=== PATIENT | male | born 1990 | race Caucasian/White ===

== ENCOUNTER 2016-11-13 11:08 | Emergency (ER) | payer SELFPAY ==
[~2016-11-13] VITALS: Ht 172.7 cm; Wt 105.4 kg
[2016-11-13 11:18] VITALS: BP 128/87; PULSE 84; RESP 16; TEMP 98; O2SAT 98
[2016-11-13] MEDS ORDERED: ERYTOIN10 RIGHT EYE (11:51)
--- NOTE | 2016-11-13 11:57 | PD ---
HPI Chief Complaint: Eye Problems/Injury Time Seen by Provider: 11:52 Travel History International Travel<30 days: No Contact w/Intl Traveler<30days: No Traveled to known affect area: No History of Present Illness HPI Patient's 26-year-old male presenting with right painful upper eyelid. Present for 2 days. He states that he's had some clear tearing as well and a mild right -sided headache that was relieved with ibuprofen. He denies any vision change, foreign body sensation or photophobia. He states he has chronic tearing and itching of his eyes which has worsened over the last several days, does not use anything for palliation. He denies any ENT/URI symptoms, fever and loss of vision. He does not wear contact lenses. [facility] Past Medical History Medical History: Denies Significant Hx Diminished Hearing: No Tetanus Vaccination: Unknown Past Surgical History Oral Surgery: Yes (FRONT TOOTH) Social History Alcohol Use: Yes (OCC.) Tobacco Use: Yes Substance Use: No Allergies-Medications (Allergen,Severity, Reaction): Coded Allergies: Penicillin (Verified Allergy, Intermediate, SWELLING AND RASH, 11/13/16) Reported Meds & Prescriptions Reported Meds & Active Scripts Active Erythromycin Opth Oint 5 Mg/Gm Oint 1 Applic RIGHT EYE BID 7 Days Review of Systems General / Constitutional: No: Fever, Chills Eyes: Positive: Drainage (clear), Pain (right upper eyelid), Tearing, No: Diploplia, Blurred Vision, Photophobia, Redness, Foreign Body Sensation, Blind Spots, Visual changes HENT: Positive: Headaches (mild, right-sided), No: Vertigo, Lightheadedness, Sore Throat, Rhinitis, Congestion Respiratory: No: Cough Hematologic/Lymphatic: No: Lymph Node Enlargement Physical Exam Narrative GENERAL: Well-developed and well-nourished adult male in no acute distress. SKIN: Warm and dry. Good turgor without tenting. HEAD: Normocephalic and atraumatic. EYES: PERRL bilaterally, 5mm. EOMI bilaterally. Very mild right conjunctival injection peripherally the bilateral eyes, slightly worse on the right without limbal injection. No icterus present. No proptosis. Right upper eyelid has pointing on the lateral aspect and mild edema with tenderness consistent with hordeolum. Visual martinez normal to confrontation. No pain with palpation of the right religious. Lid eversion reveals no foreign object.right eye fluorescein stain reveals no uptake on the right. ENT: Nasal mucosa pink and moist without discharge, septum intact and midline. Buccal mucosa pink and moist. Oropharynx free of erythema, tonsillar hypertrophy , masses, swelling, asymmetry and exudates. Uvula midline and airway patent. NECK: Supple, no meningeal signs. Trachea midline, no JVD. No cervical or facial lymphadenopathy. CARDIOVASCULAR: Regular rate and rhythm without murmurs, rubs, clicks or gallops. RESPIRATORY: Clear to auscultation bilaterally with symmetrical rise and fall, no distress or use of accessory muscles. NEUROLOGIC: CN II-XII grossly intact. Awake and alert. Motor grossly within normal limits. Normal speech. PSYCHIATRIC: Appropriate mood and affect; insight and judgment normal. Data Data Last Documented VS Vital Signs Date Time Temp Pulse Resp B/P Pulse Ox O2 Delivery O2 Flow Rate FiO2 11/13/16 11:18 98.0 84 16 128/87 98 Orders Proparacaine 0.5% Opth Soln (Alcaine 0.5 (11/13/16 12:00) MDM Medical Decision Making Medical Screen Exam Complete: Yes Emergency Medical Condition: Yes Differential Diagnosis stye versus chalazion versus blepharitis versus preseptal/post septal cellulitis unlikely Narrative Course Patient is a 26-year-old male presenting with history and physical suggestive of hordeolum on the right upper eyelid. This is blepharitis. There is no evidence of orbital cellulitis or giant cell arteritis. Visual acuity is excellent. Patient given erythromycin ointment recommend warm moist compresses and limit massage to help facilitate resolution. Follow-up with PCP or her gem stone cutter on Tuesday.See discharge paperwork for further instructions. The plan was discussed with the patient who acknowledged their understanding and agreement. Reinforced the follow-up with primary care is critically important. Patient instructed on emergent conditions that should prompt return to ED. Diagnosis Primary Impression: Stye external Qualified Code: H00.011 - Hordeolum externum of right upper eyelid Additional Impression: Allergic conjunctivitis Qualified Code: H10.13 - Allergic conjunctivitis, bilateral Patient Instructions: General Instructions, Rodriguez (ED) Departure Forms: Tests/Procedures, Work Release Enter return to work date: Nov 15, 2016 Additional Instructions: Take medications as prescribed Forgot warm compresses and limit massage will help resolve the stye Use of OTC Naphcon-A or Alaway may help with itching and watering Follow-up with PCP or gem stone cutter on Tuesday Return to the ED for any acute worsening of symptoms including worsening pain, worsening swelling or vision disturbance Med/Other Pt SpecificInfo: Prescription(s) given Scripts Erythromycin Opth Oint 5 Mg/Gm Oint1 Applic RIGHT EYE BID 7 Days Ref 0 Prov:Yu Cary MD 11/13/16 Disposition: 01 DISCHARGE HOME Condition: Stable William Garnica III Nov 13, 2016 11:57
[2016-11-13] MEDS ORDERED: PROPARACAINE HCL 0.5% OPHT SOLN 15 ML BTL RIGHT EYE ONE (12:00)
[2016-11-13] MEDS ORDERED: IBUPROFEN 800 MG TAB PO ONE (12:30)
== END 2016-11-13 12:34 | disposition home or self-care (01) ==
LOC: PHEFT 11:08
DX: H00.011 Hordeolum externum right upper eyelid (principal); H10.13 Acute atopic conjunctivitis, bilateral; R51 Headache
CPT/HCPCS: 99283

== ENCOUNTER 2017-01-09 16:18 | Emergency (ER) | payer SELFPAY ==
[~2017-01-09] VITALS: Ht 172.7 cm; Wt 102.5 kg
[~2017-01-09 16:18] MED LIST: ERYTOIN10 RIGHT EYE
[2017-01-09 16:22] VITALS: BP 129/91; PULSE 110; RESP 16; TEMP 98.5; O2SAT 96
--- NOTE | 2017-01-09 16:25 | PD ---
HPI . cough for 1-2 weeks Chief Complaint: ENT Complaint Time Seen by Provider: 16:25 Travel History International Travel<30 days: No Contact w/Intl Traveler<30days: No Traveled to known affect area: No History of Present Illness HPI 26-year-old male with no significant past medical history here with complaints of cough for about 1-2 weeks. Patient admits to a dry cough that has been persistent. He says occasionally has some mucus that comes up. He also complains of some ear pain when coughing. He is here because the coughing has been worsening and is keeping him up at night. He denies smoking. He denies any fever chills, chest pain, shortness of breath, nausea, vomiting, diaphoresis or other symptoms. PFSH Past Medical History Diminished Hearing: No Past Surgical History Oral Surgery: Yes (FRONT TOOTH) Social History Alcohol Use: Yes (OCC.) Tobacco Use: Yes Substance Use: No Allergies-Medications (Allergen,Severity, Reaction): Coded Allergies: Penicillin (Verified Allergy, Intermediate, SWELLING AND RASH, 01/09/17) Reported Meds & Prescriptions Reported Meds & Active Scripts Active Prednisone 50 Mg Tab 50 Mg PO DAILY Review of Systems General / Constitutional: No: Fever Eyes: No: Visual changes HENT: Positive: Earache, No: Headaches, Ear Discharge Cardiovascular: No: Chest Pain or Discomfort Respiratory: Positive: Cough, No: Shortness of Breath Gastrointestinal: No: Abdominal Pain Genitourinary: No: Dysuria Musculoskeletal: No: Pain Skin: No Rash Neurologic: No: Weakness Psychiatric: No: Depression Endocrine: No: Polydipsia Hematologic/Lymphatic: No: Easy Bruising Physical Exam Narrative GENERAL: AAO x 3, no acute distress, Well-nourished, well-developed patient. SKIN: Warm and dry. No visible rashes or bruising. HEAD: Normocephalic and atraumatic. EYES: No scleral icterus. No injection or drainage. EOM intact, PERRLA ENT: No nasal drainage noted. Mucous membranes pink. Airway patent. No postnasal drip. TM normal bilaterally. NECK: Supple, trachea midline. No JVD. CARDIOVASCULAR: Regular rate and rhythm without murmurs, gallops, or rubs. No tachycardia on exam. HR 90 RESPIRATORY: Breath sounds equal bilaterally. No accessory muscle use. No rhonchi or rales. Dry cough on examination. GASTROINTESTINAL: Abdomen soft, non-tender, nondistended. EXTREMITIES: No cyanosis or edema. BACK: Nontender without obvious deformity. No CVA tenderness. PSYCH: AAO x 3, normal affect. Data Data Last Documented VS Vital Signs Date Time Temp Pulse Resp B/P Pulse Ox O2 Delivery O2 Flow Rate FiO2 01/09/17 16:25 16 01/09/17 16:22 98.5 110 129/91 96 MDM Medical Decision Making Medical Screen Exam Complete: Yes Emergency Medical Condition: Yes Medical Record Reviewed: Yes Differential Diagnosis Acute bronchitis, acute sinusitis, less likely pneumonia Narrative Course 26-year-old male with no significant past medical history here with complaints of cough for about 1-2 weeks. Patient admits to a dry cough that has been persistent. He says occasionally has some mucus that comes up. He also complains of some ear pain when coughing. He is here because the coughing has been worsening and is keeping him up at night. He denies smoking. He denies any fever chills, chest pain, shortness of breath, nausea, vomiting, diaphoresis or other symptoms. Patient seen and examined. There is no acute finding other than a dry cough on examination. He appears to have a mild bronchitis. I advised him there is no need for antibiotics and I will treat with course of prednisone. Patient was in agreement. Patient verbalized understanding of instructions, questions were answered, and thanked me for their care. I advised them if their condition worsens, please return to the nearest emergency room for further care. Diagnosis Primary Impression: Acute bronchitis Qualified Code: J20.9 - Acute bronchitis, unspecified organism Patient Instructions: Acute Bronchitis (ED), General Instructions Additional Instructions: Please return to emergency department if your symptoms return or worsen. Follow up with your primary care provider. Take medications as prescribed. Med/Other Pt SpecificInfo: Prescription(s) given Scripts Prednisone 50 Mg Tab50 Mg PO DAILY #5 TAB Prov:Ladarius Crawford MD 01/09/17 Disposition: 01 DISCHARGE HOME Condition: Stable Maddie Nix Jan 09, 2017 16:25
[2017-01-09] MEDS ORDERED: PRED50 PO (16:35)
== END 2017-01-09 16:40 | disposition home or self-care (01) ==
LOC: PHEFT 16:18
DX: J20.9 Acute bronchitis, unspecified (principal); H92.09 Otalgia, unspecified ear; Z72.0 Tobacco use
CPT/HCPCS: 99283

== ENCOUNTER 2017-01-11 00:01 | Emergency (ER) | payer SELFPAY ==
[~2017-01-11] VITALS: Ht 172.7 cm; Wt 103.1 kg
[~2017-01-11 00:01] MED LIST changes: -ERYTOIN10 RIGHT EYE; +PRED50 PO
[2017-01-11 00:10] VITALS: BP 131/81; PULSE 93; RESP 22; TEMP 97.9; O2SAT 97
--- NOTE | 2017-01-11 00:25 | PD ---
HPI Chief Complaint: Cold / Flu Symptoms Time Seen by Provider: 00:15 Travel History International Travel<30 days: No Contact w/Intl Traveler<30days: No Traveled to known affect area: No History of Present Illness HPI The patient is a 26-year-old male who presents emergency department for cough. The patient was evaluated in the emergency department 2 days ago and diagnosed with bronchitis. Patient was placed on prednisone. However, he continues to complain of a dry mostly nonproductive cough, worse at night. He also complains of chest congestion, chest tightness, and occasional difficulty breathing. Upon arrival he denies any active chest pain or shortness of breath. He does have a history of tobacco use, socially, denies any history of bronchitis or pneumonia. The patient denies any history of asthma, allergies, or previous respiratory disorders. Symptoms are moderate, there are no current alleviating or exacerbating factors. He has been using [id number] cough and cold medicine with minimal relief. PFSH Past Medical History Medical History: Denies Significant Hx Diminished Hearing: No Tetanus Vaccination: < 5 Years Past Surgical History Oral Surgery: Yes (Front tooth) Social History Alcohol Use: Yes (OCC) Tobacco Use: Yes (HAS NOT SMOKED IN 4 WKS) Substance Use: No Allergies-Medications (Allergen,Severity, Reaction): Coded Allergies: Penicillin (Verified Allergy, Intermediate, SWELLING AND RASH, 01/11/17) Reported Meds & Prescriptions Reported Meds & Active Scripts Active Prednisone 50 Mg Tab 50 Mg PO DAILY Review of Systems General / Constitutional: No: Fever Cardiovascular: No: Chest Pain or Discomfort Respiratory: Positive: Cough Gastrointestinal: No: Nausea, Vomiting Musculoskeletal: No: Myalgias, Arthralgias Skin: No Rash Physical Exam Narrative GENERAL: Awake, alert, 26-year-old male who appears his stated age and is in no acute respiratory distress. SKIN: Warm and dry. HEAD: Atraumatic. Normocephalic. EYES: No injection or drainage. ENT: No nasal bleeding or discharge. Mucous membranes pink and moist. NECK: Trachea midline. No JVD. CARDIOVASCULAR: Regular rate and rhythm. No murmur appreciated. Heart rate in the 90s. RESPIRATORY: No accessory muscle use. Occasional wheezes noted. MUSCULOSKELETAL: No obvious deformities. No clubbing. No cyanosis. No edema. NEUROLOGICAL: Nonfocal. PSYCHIATRIC: Appropriate mood and affect; insight and judgment normal. Data Data Last Documented VS Vital Signs Date Time Temp Pulse Resp B/P Pulse Ox O2 Delivery O2 Flow Rate FiO2 01/11/17 00:20 93 18 97 01/11/17 00:10 97.9 131/81 Room Air Orders Albuterol-Ipratropium Neb (Duoneb Neb) (01/11/17 00:30) Lidocaine Pf 4% Neb (Lidocaine Pf 4% Neb (01/11/17 00:30) MDM Medical Decision Making Medical Screen Exam Complete: Yes Emergency Medical Condition: Yes Medical Record Reviewed: Yes Differential Diagnosis Differential diagnosis includes mycoplasma pneumonia, bronchitis, pneumonia, reactive airway disease, pneumothorax, foreign body ingestion. Narrative Course Patient's history and physical are consistent with bronchitis. The patient was placed on prednisone 2 days ago. The patient was administered DuoNeb with respiratory lidocaine. The patient will be placed on Zithromax to cover for mycoplasma pneumonia and albuterol inhaler 2 puffs every 4 hours while awake. He is advised to follow-up with a primary physician and return if symptoms worsen or progress. Diagnosis Primary Impression: Acute bronchitis Qualified Code: J20.9 - Acute bronchitis, unspecified organism Patient Instructions: General Instructions Additional Instructions: Continue prednisone as previously directed. Albuterol inhaler as directed. Zithromax as directed. Stop smoking. Plenty of fluids this dehydrated. Follow -up with your primary physician. Med/Other Pt SpecificInfo: Prescription(s) given Scripts Albuterol 18 GM Inh (Ventolin Hfa 18 GM Inh)90 Mcg/Act Aer2 Puff INH Q4H PRN ( SHORTNESS OF BREATH) #1 INHALER Ref 0 Prov:Chinedu Mae MD 01/11/17 Azithromycin (Zithromax Z-Ghassan)250 Mg [id number] Mg PO DIRECTED #1 DSPK Ref 0 500 MG (2 tabs) day 1, then 1 tab days 2-5. Prov:Chinedu Mae MD 01/11/17 Disposition: 01 DISCHARGE HOME Chinedu Mae MD Jan 11, 2017 00:25
[2017-01-11] MEDS ORDERED: ZITHTAB PO (00:28)
[2017-01-11] MEDS ORDERED: VENTAER INH (00:28)
[2017-01-11] MEDS ORDERED: RESP: LIDOCAINE HCL 4% PF 5 ML NEB NEB ONE (00:30)
[2017-01-11] MEDS ORDERED: RESP: ALBUTEROL 2.5 MG/IPRATROPIUM 0.5 MG NEB (SCH) NEB ONE (00:30)
== END 2017-01-11 00:43 | disposition home or self-care (01) ==
LOC: PHED 00:01
DX: J20.9 Acute bronchitis, unspecified (principal)
CPT/HCPCS: 94664; 99283

== ENCOUNTER 2017-03-02 21:47 | Emergency (ER) | payer SELFPAY ==
[~2017-03-02] VITALS: Ht 172.7 cm; Wt 102.0 kg
[~2017-03-02 21:47] MED LIST changes: +VENTAER INH; +ZITHTAB PO
[2017-03-02 21:49] VITALS: BP 140/90; PULSE 102; RESP 20; TEMP 97.9; O2SAT 98
[2017-03-02] MEDS ORDERED: PROPARACAINE HCL 0.5% OPHT SOLN 15 ML BTL EACH EYE ONE (22:15)
[2017-03-02] MEDS ORDERED: POLY10O RIGHT EYE (22:32)
--- NOTE | 2017-03-02 22:35 | PD ---
HPI Chief Complaint: Foreign Body Time Seen by Provider: 22:27 Travel History International Travel<30 days: No Contact w/Intl Traveler<30days: No Traveled to known affect area: No History of Present Illness HPI 26-year-old male presents for evaluation of right eye foreign body sensation. He reports that he was replacing a window unit today when a piece of dirt or other debris fell into his right eye. He washed the eye out at home with some water but the foreign body sensation and irritation persist which prompted evaluation. Symptoms are worse when his eye is open. Last Tetanus vaccination 2 years ago. He does not wear contacts. No other complaints. PFSH Past Medical History Diminished Hearing: No Past Surgical History Oral Surgery: Yes (Front tooth) Social History Alcohol Use: Yes (OCC) Tobacco Use: Yes (HAS NOT SMOKED IN 4 WKS) Substance Use: No Allergies-Medications (Allergen,Severity, Reaction): Coded Allergies: Penicillin (Verified Allergy, Intermediate, SWELLING AND RASH, 03/02/17) Reported Meds & Prescriptions Reported Meds & Active Scripts Active Polytrim Opth Drops (Polymyxin/Trimethoprim Sulfate) 10,000-0.1 Unit/Ml-% Soln 1 Drop RIGHT EYE Q6HR 7 Days Ventolin Hfa 18 GM Inh (Albuterol Sulfate) 90 Mcg/Act Aer 2 Puff INH Q4H PRN Zithromax Z-Ghassan (Azithromycin) 250 Mg Dspk 250 Mg PO DIRECTED 500 MG (2 tabs) day 1, then 1 tab days 2-5. Prednisone 50 Mg Tab 50 Mg PO DAILY Review of Systems General / Constitutional: No: Fever Eyes: Positive: Redness, Foreign Body Sensation, Tearing, No: Blurred Vision Physical Exam Narrative GENERAL: Well-developed well-nourished male in no acute distress SKIN: Warm and dry. HEAD: Atraumatic. Normocephalic. EYES: Pupils equal and round reactive to light extraocular muscles are intact there is mild conjunctival injection in the right eye. The upper eyelid was everted and there is no evidence of foreign body. Fitzpatrick lamp reveals some area of increased uptake on the lower sclera at the 6 o'clock position. Negative Severino's. ENT: No nasal bleeding or discharge. Mucous membranes pink and moist. Data Data Last Documented VS Vital Signs Date Time Temp Pulse Resp B/P Pulse Ox O2 Delivery O2 Flow Rate FiO2 03/02/17 21:49 97.9 102 20 140/90 98 Room Air Orders Proparacaine 0.5% Opth Soln (Alcaine 0.5 (03/02/17 22:15) MDM Medical Decision Making Medical Screen Exam Complete: Yes Emergency Medical Condition: Yes Medical Record Reviewed: Yes Differential Diagnosis Corneal abrasion, scleral abrasion, retained foreign body, iritis, conjunctivitis Narrative Course 26-year-old male with foreign body sensation and irritation in the right eye after some debris fell into his right eye earlier today. He washed it out at home and examination reveals no evidence of retained foreign body. He does have a scleral abrasion at the 6 o'clock position. He will be discharged with Polytrim ophthalmic solution. Diagnosis Primary Impression: Abrasion of sclera of right eye Qualified Code: S05.8X1A - Abrasion of sclera of right eye, initial encounter Additional Instructions: Medication as prescribed. As discussed, symptoms should resolve in approximately 48 hours. If symptoms are worsening at that time follow-up for recheck. Med/Other Pt SpecificInfo: Prescription(s) given Scripts Polymyxin B-Trimethoprim Opth Drops (Polytrim Opth Drops)10,000-0.1 Unit/Ml-% Soln1 Drop RIGHT EYE Q6HR 7 Days Ref 0 Prov:Jb Larose MD 03/02/17 Disposition: 01 DISCHARGE HOME Condition: Stable Micheal Bellamy Mar 02, 2017 22:35
== END 2017-03-02 22:53 | disposition home or self-care (01) ==
LOC: NEPK 21:47
DX: S05.01XA Injury of conjunctiva and corneal abrasion without foreign body, right eye, initial encounter (principal); X58.XXXA Exposure to other specified factors, initial encounter
CPT/HCPCS: 99283

== ENCOUNTER 2018-04-17 21:10 | Emergency (ER) | payer OTHER ==
[~2018-04-17] VITALS: Ht 172.7 cm; Wt 101.1 kg
[~2018-04-17 21:10] MED LIST changes: +POLY10O RIGHT EYE
[2018-04-17 21:13] VITALS: BP 152/78; PULSE 93; RESP 18; TEMP 98.4; O2SAT 96
--- NOTE | 2018-04-17 21:42 | PD ---
HPI Chief Complaint: Musculoskeletal Complaint Time Seen by Provider: 21:32 Travel History International Travel<30 days: No Contact w/Intl Traveler<30days: No Traveled to known affect area: No History of Present Illness HPI 27-year-old male presents to the emergency department for complaint of right shoulder and right clavicle pain. 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 Patient does not report any fall or blunt trauma. Patient does not report any upper extremity numbness tingling or weakness. Patient does state pain radiates to the right side of the neck. Patient denies any previous similar symptoms or injury. Patient is taken no medications for symptom relief. Range of motion increases pain unknown alleviating factors. PFSH Past Medical History Narrative Medical Fracture hand; nursing notes reviewed Diminished Hearing: No Tetanus Vaccination: < 5 Years Influenza Vaccination: Yes Past Surgical History Oral Surgery: Yes (Front tooth) Social History Alcohol Use: Yes (OCC) Tobacco Use: Yes (1/2 PPD) Substance Use: No Allergies-Medications (Allergen,Severity, Reaction): Coded Allergies: penicillin G (Unverified Allergy, Intermediate, SWELLING AND RASH, 04/17/18 ) Reported Meds & Prescriptions Reported Meds & Active Scripts Active No Active Prescriptions or Reported Medications Review of Systems Except as stated in HPI: all other systems reviewed are Neg Physical Exam Narrative GENERAL: Well-developed well-nourished male no acute distress no respiratory distress SKIN: Warm and dry. HEAD: Normocephalic. EYES: No scleral icterus. No injection or drainage. NECK: Supple, trachea midline. No JVD or lymphadenopathy. No midline tenderness to direct palpation no bony step-off CARDIOVASCULAR: Regular rate and rhythm without murmurs, gallops, or rubs. RESPIRATORY: Breath sounds equal bilaterally. No accessory muscle use. GASTROINTESTINAL: Abdomen soft, non-tender, nondistended. MUSCULOSKELETAL: No cyanosis, or edema. Decreased range of motion of right shoulder secondary to pain but able to abduct and adduct and distal clavicle bony prominence to palpation without tenting of the skin. Distally right upper extremity is neurovascular tendon intact with brisk capillary refill less than 2 seconds radial ulnar pulses are 2+ to palpation. BACK: Nontender without obvious deformity. No CVA tenderness. Data Data Last Documented VS Vital Signs Date Time Temp Pulse Resp B/P (MAP) Pulse Ox O2 Delivery O2 Flow Rate FiO2 04/17/18 21:13 98.4 93 18 152/78 (102) 96 Orders Orders Shoulder, Complete (>2vws) (04/17/18 ) Clavicle (04/17/18 ) Ibuprofen (Motrin) (04/17/18 22:15) Splint Or Brace Apply/Monitor (04/17/18 22:12) Ed Discharge Order (04/17/18 22:12) MDM Medical Decision Making Medical Screen Exam Complete: Yes Emergency Medical Condition: Yes Medical Record Reviewed: Yes Interpretation(s) Last Impressions Shoulder X-Ray 04/17/18 0000 Signed Impressions: CONCLUSION: Unremarkable study. Clavicle X-Ray 04/17/18 0000 Signed Impressions: CONCLUSION: Unremarkable study. Vital Signs Date Time Temp Pulse Resp B/P (MAP) Pulse Ox O2 Delivery O2 Flow Rate FiO2 04/17/18 21:13 98.4 93 18 152/78 (102) 96 Differential Diagnosis Sprain strain subluxation fracture rotator cuff injury AC separation Narrative Course Imaging study ordered of the right shoulder and clavicle Imaging studies reveal no acute abnormality sling applied and patient given 800 mg dose of ibuprofen; patient is stable for outpatient management and follow-up with his primary care provider Diagnosis Primary Impression: Sprain of right shoulder Qualified Codes: S43.401A - Unspecified sprain of right shoulder joint, initial encounter Referrals: Orthopedist as needed Primary Care Physician call for appointment Patient Instructions: General Instructions Additional Instructions: Apply ice pack to affected area intermittently for first 12-24 hours Avoid use of right upper extremity 2 days May use sling to support extremity for comfort purposes Recommend ibuprofen 800 mg as often as every 8 hours for pain associated with inflammation Return to the emergency department for any concerns or change in addition Recommend follow-up with your primary care provider; may follow-up with orthopedist as needed, continuous miner orthopedtist Dr Dr Maurice Med/Other Pt SpecificInfo: Prescription(s) given Scripts Ibuprofen (Ibuprofen) 800 Mg Tab 800 MG PO Q8H Y for PAIN GREATER THAN 5, #15 TAB 0 Refills Prov: Aranza Frazier MD 04/17/18 Disposition: 01 DISCHARGE HOME Condition: Stable Aranza Frazier MD Apr 17, 2018 21:42
--- NOTE | 2018-04-17 22:01 | RADRPT ---
EXAM DATE: 04/17/2018 9:52 PM EDT AGE/SEX: 27 years / Male INDICATIONS: Right shoulder pain, no known trauma. CLINICAL DATA: This is the patient's initial encounter. Patient reports that signs and symptoms have been present for 1 day and indicates a pain score of 5/10. MEDICAL/SURGICAL HISTORY: None. None. COMPARISON: No prior exams available for comparison. FINDINGS: No definite fractures, or dislocations are identified. No definite lytic or sclerotic les ion is seen. The joint space is well maintained. CONCLUSION: Unremarkable study. Electronically signed by: Mac Walker MD 04/17/2018 10:00 PM EDT
--- NOTE | 2018-04-17 22:02 | RADRPT ---
EXAM DATE: 04/17/2018 9:52 PM EDT AGE/SEX: 27 years / Male INDICATIONS: Right shoulder pain, no known trauma. CLINICAL DATA: This is the patient's initial encounter. Patient reports that signs and symptoms have been present for 1 day and indicates a pain score of 5/10. MEDICAL/SURGICAL HISTORY: None. None. COMPARISON: No prior exams available for comparison. FINDINGS: No definite fractures, or dislocations are identified. No definite lytic or sclerotic les ion is seen. CONCLUSION: Unremarkable study. Electronically signed by: Mac Walker MD 04/17/2018 10:00 PM EDT
[2018-04-17] MEDS ORDERED: IBUPROFEN 800 MG TAB PO ONE (22:15)
[2018-04-17] MEDS ORDERED: IBUP1TAB7 PO (22:23)
== END 2018-04-17 22:32 | disposition home or self-care (01) ==
LOC: PHEFT 21:10
DX: S43.401A Unspecified sprain of right shoulder joint, initial encounter (principal); F17.200 Nicotine dependence, unspecified, uncomplicated; Y93.H2 Activity, gardening and landscaping; Z88.0 Allergy status to penicillin
CPT/HCPCS: 73000; 73030; 99283